=== PATIENT | female | born 1980 | race African-American/Black ===

== ENCOUNTER 2021-07-02 12:41 | Emergency (ER) | payer SELFPAY ==
--- NOTE | 2021-07-02 13:44 | EDPHYS ---
Physician Documentation [facility] Name: Marley Hutchinson Age: 41 yrs Sex: Female : 1980 Arrival Date: 07/02/2021 Time: 12:41 Bed 9 Private MD: ED Physician Keith Hernandez HPI: 07/02 13:43 This 41 yrs old Black Female presents to ER via Ambulatory with complaints of Hand pm1 Pain, Hand Swelling. 13:43 The patient or guardian reports pain, swelling. The complaints affect the left wrist pm1 and right wrist and left hand and right hand. 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 Onset: The symptoms/episode began/occurred this morning. Modifying factors: The symptoms are alleviated by holding still, the symptoms are aggravated by movement. Associated signs and symptoms: Pertinent negatives: cyanosis distally, decreased sensation distally, numbness distally, tingling distally. Severity of symptoms: in the emergency department the symptoms are actually worse. The patient has not experienced similar symptoms in the past. The patient has not recently seen a physician. Historical: - Allergies: 13:37 No Known Allergies; aa5 - PMHx: 13:34 Diabetes mellitus; aa5 13:37 thyroid problem; aa5 - Immunization history:: Adult Immunizations unknown. - Social history:: Smoking status: Reported history of juuling and/or vaping. ROS: 13:43 Constitutional: Negative for fever, chills, and weight loss, Cardiovascular: Negative pm1 for chest pain, palpitations, and edema, Respiratory: Negative for shortness of breath, cough, wheezing, and pleuritic chest pain. 13:43 Skin: Negative for injury, rash, and discoloration, Neuro: Negative for headache, weakness, numbness, tingling, and seizure. 13:43 MS/extremity: Positive for pain, of the right hand, left hand, right wrist and left wrist, Negative for injury or acute deformity, decreased range of motion, deformity. 13:43 All other systems are negative. Exam: 13:43 Constitutional: This is a well developed, well nourished patient who is awake, alert, pm1 and in no acute distress. Head/Face: Normocephalic, atraumatic. 13:43 Skin: Warm, dry with normal turgor. Normal color with no rashes, no lesions, and no evidence of cellulitis. 13:43 Cardiovascular: Exam negative for acute changes, Rate: normal, Rhythm: regular, Pulses: no pulse deficits are appreciated. 13:43 Respiratory: Exam negative for acute changes, respiratory distress, shortness of breath. 13:43 Musculoskeletal/extremity: Extremities: grossly normal except: noted in the left wrist: Positive for Phalen and Tinel test, noted in the right wrist: Positive for Phalen and Tinel test, Circulation is intact in all extremities. the right hand and left hand Sensation intact. 13:43 Neuro: Exam negative for acute changes, Orientation: is normal, Mentation: is normal, Motor: is normal, moves all fours. Vital Signs: 13:33 BP 109 / 80; Pulse 81; Resp 18 S; Temp 98.0(TE); Pulse Ox 99% on R/A; Weight 79.83 kg aa5 (R); Height 5 ft. 9 in. (175.26 cm) (R); 13:33 Body Mass Index 25.99 (79.83 kg, 175.26 cm) aa5 MDM: 13:11 Patient medically screened. pm1 13:39 Data reviewed: vital signs. Data interpreted: Pulse oximetry: on room air is 99 %. pm1 Interpretation: normal. Counseling: I had a detailed discussion with the patient and/or guardian regarding: the historical points, exam findings, and any diagnostic results supporting the discharge/admit diagnosis, the need for outpatient follow up, to return to the emergency department if symptoms worsen or persist or if there are any questions or concerns that arise at home. 07/02 13:42 Order name: Wrist Splint: bilateral; Complete Time: 13:56 pm1 Administered Medications: 14:03 Drug: Ketorolac 60 mg Route: IM; Site: right ventrogluteal; iw 14:15 Follow up: Response: No adverse reaction iw Disposition: 16:09 Co-signature as Attending Physician, Keith Hernandez MD I agree with the assessment and kdr plan of care. Disposition Summary: 07/02/21 13:43 Discharge Ordered Location: Home pm1 Problem: new pm1 Symptoms: have improved pm1 Condition: Stable pm1 Diagnosis - Pain in right wrist pm1 - Pain in left wrist pm1 Followup: pm1 - With: Emergency Department - When: As needed - Reason: Worsening of condition Followup: pm1 - With: Private Physician - When: 2 - 3 days - Reason: Recheck today's complaints, Continuance of care, Re-evaluation by your physician Discharge Instructions: - Discharge Summary Sheet pm1 - Carpal Tunnel Syndrome pm1 - Wrist Pain, Adult pm1 - Wrist Splint, Adult pm1 Forms: - Medication Reconciliation Form pm1 - Thank You Letter pm1 - Antibiotic Education pm1 - Prescription Opioid Use pm1 - Work release form iw Prescriptions: - Diclofenac Sodium 75 mg Oral tablet,delayed release (DR/EC) - take 1 tablet by ORAL route 2 times per day As needed; 30 tablet; Refills: 0, pm1 Product Selection Permitted Signatures: Keith Hernandez MD MD kdr Iris Damon RN RN iw Smita Monge RN RN aa5 Sreekanth Gallegos NP SAXOPHONE TEACHER pm1
--- NOTE | 2021-07-02 13:44 | ER ---
Nurse's Notes [facility] Name: Marley Hutchinson Age: 41 yrs Sex: Female : 1980 Arrival Date: 07/02/2021 Time: 12:41 Bed 9 Private MD: Diagnosis: Pain in right wrist;Pain in left wrist Presentation: 07/02 13:33 Chief complaint: Patient states: becca hand pain and swelling x 3 days ago. Coronavirus aa5 screen: At this time, the client does not indicate any symptoms associated with coronavirus-19. Ebola Screen: No symptoms or risks identified at this time. Initial Sepsis Screen: Does the patient meet any 2 criteria? No. Patient's initial sepsis screen is negative. Does the patient have a suspected source of infection? No. Patient's initial sepsis screen is negative. Risk Assessment: Do you want to hurt yourself or someone else? Patient reports no desire to harm self or others. Onset of symptoms was June 2021. 13:33 Acuity: CAS 5 aa5 13:33 Method Of Arrival: Ambulatory aa5 Triage Assessment: 14:00 General: Appears in no apparent distress. iw 14:00 General: Behavior is calm, cooperative. iw Historical: - Allergies: 13:37 No Known Allergies; aa5 - PMHx: 13:34 Diabetes mellitus; aa5 13:37 thyroid problem; aa5 - Immunization history:: Adult Immunizations unknown. - Social history:: Smoking status: Reported history of juuling and/or vaping. Screenin:05 Abuse screen: Denies threats or abuse. Denies injuries from another. Nutritional iw screening: No deficits noted. Tuberculosis screening: No symptoms or risk factors identified. Fall Risk None identified. Assessment: 14:00 General: Appears in no apparent distress. Behavior is calm, cooperative. Pain: iw Complains of pain in right hand and left hand. Neuro: Level of Consciousness is awake, alert, obeys commands, Oriented to person, place, time, situation, Moves all extremities. Full function. Cardiovascular: Patient's skin is warm and dry. Vital Signs: 13:33 BP 109 / 80; Pulse 81; Resp 18 S; Temp 98.0(TE); Pulse Ox 99% on R/A; Weight 79.83 kg aa5 (R); Height 5 ft. 9 in. (175.26 cm) (R); 13:33 Body Mass Index 25.99 (79.83 kg, 175.26 cm) aa5 ED Course: 12:41 Patient arrived in ED. as 12:48 Sreekanth Gallegos NP is PHCP. pm1 12:48 Keith Hernandez MD is Attending Physician. pm1 13:33 Arm band placed on. aa5 13:34 Triage completed. aa5 13:53 Iris Damon RN is Primary Nurse. iw 13:58 Velcro wrist splint applied to right wrist. left wrist. dh3 14:00 Patient has correct armband on for positive identification. iw 14:06 No provider procedures requiring assistance completed. Patient did not have IV access iw during this emergency room visit. Administered Medications: 14:03 Drug: Ketorolac 60 mg Route: IM; Site: right ventrogluteal; iw 14:15 Follow up: Response: No adverse reaction iw Outcome: 13:43 Discharge ordered by MD. pm1 14:06 Discharged to home ambulatory. iw 14:06 Condition: good 14:06 Discharge instructions given to patient, Instructed on discharge instructions, follow up and referral plans. Demonstrated understanding of instructions, follow-up care, medications, Prescriptions given X 1. 14:07 Patient left the ED. iw Signatures: Sonia Vega as Iris Damon RN RN iw Smita Monge RN RN aa5 Sreekanth Gallegos NP VEHICLE CALIBRATION ENGINEER pm1 Rhiannon Jean 3
[2021-07-02] MEDS ORDERED: KETOROLAC 30 MG/ML INJ ONE (14:02)
[2021-07-02 14:11] VITALS: BP 109/80; TEMP 98; O2SAT 99
== END 2021-07-02 14:07 | disposition home or self-care (01) ==
LOC: ER 12:41
DX: M25.531 Pain in right wrist (principal); M25.532 Pain in left wrist; E11.9 Type 2 diabetes mellitus without complications
CPT/HCPCS: 96372; 99283

== ENCOUNTER 2021-07-18 14:06 | Emergency (ER) | payer SELFPAY ==
--- NOTE | 2021-07-18 15:58 | EDPHYS ---
Physician Documentation [facility] Name: Marley Hutchinson Age: 41 yrs Sex: Female : 1980 Arrival Date: 07/18/2021 Time: 14:07 Bed DIS4 Private MD: JOHNATHAN Physician Baldomero Walters HPI: 07/18 15:54 This 41 yrs old Black Female presents to ER via Ambulatory with complaints of Numbness jmm Of Hand - left. 15:54 The patient or guardian reports pain. Onset: The symptoms/episode began/occurred jmm gradually, 2 week(s) ago. Modifying factors: The symptoms are alleviated by nothing, the symptoms are aggravated by movement. Associated signs and symptoms: Pertinent positives: numbness distally. The patient has not experienced similar symptoms in the past. Is a 41-year-old female with history of diabetes mellitus and hypothyroidism the presents emerged part with left hand numbness beginning approximately 2 weeks ago. Patient initially had some swelling to the hand. Now complaints of pain mainly to the palm affecting the first second and third phalanxes. Pain and paresthesias radiate up to the elbow.. Historical: - Allergies: 15:00 No Known Allergies; ww - PMHx: 15:00 diabetes mellitus; Thyroid problem; ww - PSHx: 15:00 Cholecystectomy; ww - Immunization history:: Adult Immunizations up to date. - Social history:: Smoking status: Reported history of juuling and/or vaping. ROS: 15:54 Constitutional: Negative for fever, chills, and weight loss, Cardiovascular: Negative jmm for chest pain, palpitations, and edema, Respiratory: Negative for shortness of breath, cough, wheezing, and pleuritic chest pain. 15:54 MS/extremity: Positive for pain, paresthesias. 15:54 All other systems are negative. Exam: 15:54 Constitutional: This is a well developed, well nourished patient who is awake, alert, jmm and in no acute distress. Head/Face: atraumatic. Eyes: EOMI, no conjunctival erythema appreciated ENT: Moist Mucus Membranes Neck: Trachea midline, Supple Chest/axilla: Normal chest wall appearance and motion. Cardiovascular: Regular rate and rhythm. No edema appreciated Respiratory: Normal respirations, no respiratory distress appreciated Abdomen/GI: Non distended, soft Back: Normal ROM Skin: General appearance color normal 15:54 Musculoskeletal/extremity: Paresthesias appreciated to the left palm involving the first second and third phalanxes, sensation is intact, motor function intact, locomotive mechanic is painful, full radial pulse, compartments are soft, neurovascular intact. 15:54 Skin: Appearance: Color: normal in color. 15:54 Neuro: Orientation: is normal, Mentation: is normal, Memory: is normal. 15:54 Psych: Behavior/mood is pleasant, cooperative. Vital Signs: 14:58 BP 112 / 90; Pulse 81; Resp 18; Temp 98; Pulse Ox 98% ; Weight 77.11 kg; Height 5 ft. ww 10 in. (177.80 cm); 14:58 Body Mass Index 24.39 (77.11 kg, 177.80 cm) ww MDM: 15:48 Patient medically screened. [facility] 15:57 Data reviewed: vital signs, nurses notes. Counseling: I had a detailed discussion with [facility] the patient and/or guardian regarding: the historical points, exam findings, and any diagnostic results supporting the discharge/admit diagnosis, the need for outpatient follow up, to return to the emergency department if symptoms worsen or persist or if there are any questions or concerns that arise at home. ED course: Symptoms appear consistent with carpal tunnel syndrome. Patient advised follow-up PCP and otherwise given strict return precautions. Patient understood agrees to plan of care.. Administered Medications: No medications were administered Disposition Summary: 07/18/21 15:57 Discharge Ordered Location: Home [facility] Condition: Stable [facility] Diagnosis - Carpal tunnel syndrome [facility] Followup: [facility] - With: Private Physician - When: 2 - 3 days - Reason: Recheck today's complaints, Continuance of care, Re-evaluation by your physician Followup: [facility] - With: Modesto Christie MD - When: 2 - 3 days - Reason: Recheck today's complaints, Continuance of care, Re-evaluation by your physician Discharge Instructions: - Discharge Summary Sheet [facility] - Carpal Tunnel Syndrome [facility] Forms: - Medication Reconciliation Form [facility] - Thank You Letter [facility] - Work release form [facility] - Antibiotic Education [facility] - Prescription Opioid Use [facility] Prescriptions: - orphenadrine citrate 100 mg Oral Tablet Sustained Release - take 1 tablet by ORAL route 2 times per day As needed; 20 tablet; Refills: 0, [facility] Product Selection Permitted Signatures: Baldomero Walters MD MD cha Mickail, Joel, PA PA jmm Wood, Whitney, RN RN ww
--- NOTE | 2021-07-18 15:58 | ER ---
Nurse's Notes [facility] Name: Marley Hutchinson Age: 41 yrs Sex: Female : 1980 Arrival Date: 07/18/2021 Time: 14:07 Bed DIS4 Private MD: Diagnosis: Carpal tunnel syndrome Presentation: 07/18 14:58 Chief complaint: Patient states: Left hand numbness and shooting pains up to left arm ww and shoulder. Wrist splint on hand and patient was told she would most likely need to have surgery for her carpal tunnel. Coronavirus screen: Client denies travel out of the [place] in the last 14 days. Ebola Screen: Patient denies travel to an Ebola-affected area in the 21 days before illness onset. Initial Sepsis Screen: Does the patient meet any 2 criteria? No. Patient's initial sepsis screen is negative. Does the patient have a suspected source of infection? No. Patient's initial sepsis screen is negative. Risk Assessment: Do you want to hurt yourself or someone else? Patient reports no desire to harm self or others. Onset of symptoms is unknown. 14:58 Method Of Arrival: Ambulatory ww 14:58 Acuity: CAS 4 ww Historical: - Allergies: 15:00 No Known Allergies; ww - PMHx: 15:00 diabetes mellitus; Thyroid problem; ww - PSHx: 15:00 Cholecystectomy; ww - Immunization history:: Adult Immunizations up to date. - Social history:: Smoking status: Reported history of juuling and/or vaping. Screenin:04 Abuse screen: Denies threats or abuse. Denies injuries from another. Nutritional iw screening: No deficits noted. Tuberculosis screening: No symptoms or risk factors identified. Fall Risk None identified. Assessment: 15:35 Reassessment: not in lobby at this time. iw Vital Signs: 14:58 BP 112 / 90; Pulse 81; Resp 18; Temp 98; Pulse Ox 98% ; Weight 77.11 kg; Height 5 ft. ww 10 in. (177.80 cm); 14:58 Body Mass Index 24.39 (77.11 kg, 177.80 cm) ww ED Course: 14:07 Patient arrived in ED. am2 15:00 Triage completed. ww 15:00 Arm band placed on. ww 15:35 Iris Damon, RN is Primary Nurse. iw 15:46 Dylan Anderson PA is PHCP. [facility] 15:46 Baldomero Walters MD is Attending Physician. [facility] 16:06 Modesto Christie MD is Referral Physician. [facility] Administered Medications: No medications were administered Outcome: 15:57 Discharge ordered by . [facility] 16:18 Patient left the ED. iw Signatures: Dylan Anderson PA PA [facility] Iris Damon, RN RN Aurelia Mathis Dori Caicedo RN RN
[2021-07-18 16:38] VITALS: BP 112/90; TEMP 98; O2SAT 98
== END 2021-07-18 16:18 | disposition home or self-care (01) ==
LOC: ER 14:06
DX: G56.02 Carpal tunnel syndrome, left upper limb (principal); E11.9 Type 2 diabetes mellitus without complications
CPT/HCPCS: 99281

== ENCOUNTER 2021-09-29 13:00 | Emergency (ER) | payer SELFPAY ==
[2021-09-29 15:58] LABS: Urine Blood Trace-intact (Negative); Urine Glucose 3+ (Negative); Urine Protein Negative (Negative); Urine pH 5.5 (5.0-7.0)
[2021-09-29] MEDS ORDERED: NA CHLORIDE 0.9% 1,000 ML ONE (16:28)
[2021-09-29] MEDS ORDERED: ONDANSETRON 4 MG/2 ML VIAL ONE (16:28)
[2021-09-29 16:57] LABS: Urine Bacteria >50 /HPF (<20)
[2021-09-29 17:17] LABS: Absolute Lymphocytes (CBC) 2.2 K/uL (0.7-4.9); Hematocrit 38.8 % (36.0-45.0); Lymphocytes % 21.9 % (15.3-44.8); MCV 77.9 fL (80-100); MPV 10.2 fL (7.6-11.3); RBC Red Blood Cell Count 4.98 M/uL (3.86-4.86)
[2021-09-29] MEDS ORDERED: CEFTRIAXONE 1000 MG/VIAL ONE (17:19)
[2021-09-29] MEDS ORDERED: INSULIN -REGULAR HUMAN 50 UNIT/0.5 ML ML ONE (17:19)
[2021-09-29] MEDS ORDERED: NA CHLORIDE 0.9% 250 ML ONE (17:19)
[2021-09-29 17:52] LABS: Albumin 3.3 g/dL (3.4-5.0); Bilirubin Total 0.5 mg/dL (0.2-1.0); Potassium 3.8 mmol/L (3.5-5.1); Protein, Total 7.5 g/dL (6.4-8.2)
--- NOTE | 2021-09-29 20:22 | RAD REPORT ---
EXAM DESCRIPTION: CTAbdomen Pelvis W Contrast - 09/29/2021 8:15 pm CLINICAL HISTORY: Abdominal pain. abd pain COMPARISON: No comparisons TECHNIQUE: Biphasic CT imaging of the abdomen and pelvis was performed with 100 ml non-ionic IV cont rast. All CT scans are performed using dose optimization technique as appropriate and may include automated exposure control or mA/KV adjustment according to patient size. FINDINGS: The lung bases are clear.Cholecystectomy clips. The liver, spleen, pancreas, adrenal glands and kidneys are within normal limits. No bowel obstruction, free air, free fluid or abscess. Moderate stool is present throughout the colon . The appendix is normal. No evidence of significant lymphadenopathy. No suspicious bony findings. IMPRESSION: No acute intra-abdominal or pelvic finding.
--- NOTE | 2021-09-29 20:31 | EDPHYS ---
Physician Documentation [facility] Name: Marley Hutchinson Age: 41 yrs Sex: Female : 1980 Arrival Date: 09/29/2021 Time: 13:06 Bed 11 Private MD: ED Physician Baldomero Walters HPI: 09/29 18:21 This 41 yrs old Black Female presents to ER via Ambulatory with complaints of Nausea, kb Headache, Abdominal Pain. 18:21 The patient presents to the emergency department with nausea, vomiting, abdominal pain. kb The patient has not recently seen a physician. 18:21 Onset: The symptoms/episode began/occurred 2 day(s) ago. Possible causes: unknown. The kb symptoms are aggravated by nothing. The symptoms are alleviated by nothing. Associated signs and symptoms: Pertinent positives: abdominal pain, nausea, vomiting. Severity of symptoms: At their worst the symptoms were moderate in the emergency department the symptoms are unchanged. The patient has not experienced similar symptoms in the past. Patient reports abdominal pain, headache, nausea, vomiting, and fatigue for 2 days. Denies fever, chills, body aches. Denies urinary symptoms.. Historical: - Allergies: 13:55 No Known Allergies; iw - PMHx: 13:55 Thyroid problem; diabetes mellitus; iw - PSHx: 13:55 Cholecystectomy; iw 13:55 bladder; iw - Immunization history:: Adult Immunizations up to date. - Social history:: Smoking status: . ROS: 18:21 Constitutional: Negative for fever, chills, and weight loss, Respiratory: Negative for kb shortness of breath, cough, wheezing, and pleuritic chest pain. 18:21 Abdomen/GI: Positive for abdominal pain, nausea and vomiting. 18:21 Neuro: Positive for headache. 18:21 All other systems are negative. Exam: 18:21 Constitutional: This is a well developed, well nourished patient who is awake, alert, kb and in no acute distress. Head/Face: Normocephalic, atraumatic. ENT: Moist Mucous membranes Cardiovascular: Regular rate and rhythm with a normal S1 and S2. No gallops, murmurs, or rubs. No pulse deficits. Respiratory: Respirations even and unlabored. No increased work of breathing. Talking in full sentences Abdomen/GI: Soft, non-tender. No distention Skin: Warm, dry with normal turgor. Normal color. MS/ Extremity: Pulses equal, no cyanosis. Neurovascular intact. Full, normal range of motion. Neuro: Awake and alert, GCS 15, oriented to person, place, time, and situation. Moves all extremities. Normal gait. Psych: Awake, alert, with orientation to person, place and time. Behavior, mood, and affect are within normal limits. Vital Signs: 13:54 BP 111 / 72; Pulse 89; Resp 16; Temp 98.4; Pulse Ox 100% on R/A; iw 17:07 BP 124 / 71; Pulse 63; Resp 16; Pulse Ox 100% on R/A; Pain 0/10; bm7 17:49 BP 114 / 74; Pulse 70; Resp 16; Pulse Ox 100% on R/A; Pain 0/10; bm7 18:40 BP 111 / 72; Pulse 73; Resp 16; Pulse Ox 100% on R/A; Pain 0/10; bm7 19:10 BP 111 / 64; Pulse 74; Resp 16; Pulse Ox 100% on R/A; Pain 4/10; bm7 MDM: 13:51 Patient medically screened. kb 18:25 Data reviewed: vital signs, nurses notes. Data interpreted: Pulse oximetry: on room air kb is 100 %. Interpretation: normal. 20:30 Counseling: I had a detailed discussion with the patient and/or guardian regarding: the kb historical points, exam findings, and any diagnostic results supporting the discharge/admit diagnosis, lab results, radiology results, the need for outpatient follow up, a family practitioner, to return to the emergency department if symptoms worsen or persist or if there are any questions or concerns that arise at home. 09/29 13:54 Order name: COVID-19 SARS RT PCR (Document "Date of Onset" if Symptomatic); Complete kb Time: 15:43 09/29 13:54 Order name: Flu; Complete Time: 14:55 kb 09/29 15:58 Order name: Urine Dipstick-Ancillary; Complete Time: 15:58 EDMS 09/29 15:58 Order name: Urine Microscopic Only; Complete Time: 17:05 kb 09/29 16:06 Order name: CBC with Diff; Complete Time: 17:37 kb 09/29 16:06 Order name: CMP; Complete Time: 17:55 kb 09/29 16:06 Order name: Lipase; Complete Time: 17:55 kb 09/29 16:07 Order name: Lactate kb 09/29 16:08 Order name: Acetone, Serum; Complete Time: 17:37 kb 09/29 17:00 Order name: Urine Culture EDMS 09/29 17:18 Order name: Glucose, Ancillary Testing; Complete Time: 17:21 EDMS 09/29 18:01 Order name: Glucose, Ancillary Testing; Complete Time: 18:01 EDMS 09/29 18:55 Order name: Glucose, Ancillary Testing; Complete Time: 19:01 EDMS 09/29 19:47 Order name: Urine --Ancillary (enter results); Complete Time: 20:13 mw2 09/29 13:54 Order name: Urine Dipstick-Ancillary (obtain specimen); Complete Time: 15:59 kb 09/29 13:54 Order name: Urine Test (obtain specimen); Complete Time: 15:59 kb 09/29 16:06 Order name: IV Saline Lock; Complete Time: 17:00 kb 09/29 16:06 Order name: Labs collected and sent; Complete Time: 17:00 kb 09/29 18:44 Order name: CT Abd/Pelvis - IV Contrast Only; Complete Time: 20:29 kb Administered Medications: 16:08 CANCELLED (Duplicate Order): Zofran (Ondansetron) 4 mg PO once kb 17:00 Drug: NS 0.9% 1000 ml Route: IV; Rate: 1 bolus; Site: right antecubital; 7 17:54 Follow up: IV Status: Completed infusion; IV Intake: 1000ml bm7 18:40 Follow up: IV Status: Completed infusion; IV Intake: 1000ml bm7 17:00 Drug: Zofran (Ondansetron) 4 mg Route: IVP; Site: right antecubital; 7 17:30 Follow up: Response: Nausea is decreased bm7 17:20 Drug: Insulin Regular Human 5 units {Co-Signature: ll1 (Denny Akers RN).} Route: IVP; bm7 Site: right antecubital; 17:53 Follow up: Response: Blood sugar is lowered 7 17:21 Drug: Rocephin (cefTRIAXone) 1 grams Route: IV; Rate: calculated rate; Site: right 7 antecubital; 17:36 Follow up: IV Status: Completed infusion iw Point of Care Testing: Blood Glucose: 17:07 Blood Glucose: 375 mg/dL; bm7 17:53 Blood Glucose: 322 mg/dL; bm7 18:40 Blood Glucose: 257 mg/dL; bm7 Ranges: Critical Glucose Levels:Adult <50 mg/dl or >400 mg/dl <40 mg/dl or >180 mg/dl Disposition Summary: 09/29/21 20:30 Discharge Ordered Location: Home kb Condition: Stable kb Diagnosis - UTI/ Urinary tract infection, site not specified kb - Hyperglycemia, unspecified kb Followup: kb - With: Emergency Department - When: As needed - Reason: Worsening of condition Followup: kb - With: Private Physician - When: 2 - 3 days - Reason: Recheck today's complaints, Continuance of care, Re-evaluation by your physician Discharge Instructions: - Discharge Summary Sheet kb - Urinary Tract Infection, Adult, Olxm-[id number] kb - Hyperglycemia, [id number] kb Forms: - Medication Reconciliation Form kb - Work release form kb - Thank You Letter kb - Antibiotic Education kb - Prescription Opioid Use kb Prescriptions: - Macrobid 100 mg Oral Capsule - take 1 capsule by ORAL route every 12 hours for 10 days; 20 capsule; Refills: kb 0, Product Selection Permitted Signatures: Dispatcher [employer] Delia Merrill, OPTICAL DESIGNER-C OPTICAL DESIGNER-Iris Reynolds, RN RN iw Ria Churchill, LILIA RN bm7 Denny Akers RN ll1 Corrections: (The following items were deleted from the chart) 16:08 13:54 Zofran (Ondansetron) 4 mg PO once ordered. kb kb
--- NOTE | 2021-09-29 20:31 | ER ---
Nurse's Notes [facility] Name: Marley Hutchinson Age: 41 yrs Sex: Female : 1980 Arrival Date: 09/29/2021 Time: 13:06 Bed 11 Private MD: Diagnosis: UTI/ Urinary tract infection, site not specified;Hyperglycemia, unspecified Presentation: 09/29 13:54 Chief complaint: Patient states: lower abd pain, headache, nausea, fatigue. Coronavirus iw screen: Client presents with at least one sign or symptom that may indicate coronavirus-19. Ebola Screen: Patient negative for fever greater than or equal to 101.5 degrees Fahrenheit, and additional compatible Ebola Virus Disease symptoms Patient denies exposure to infectious person. Patient denies travel to an Ebola-affected area in the 21 days before illness onset. No symptoms or risks identified at this time. Initial Sepsis Screen: Does the patient meet any 2 criteria? No. Patient's initial sepsis screen is negative. Does the patient have a suspected source of infection? No. Patient's initial sepsis screen is negative. Risk Assessment: Do you want to hurt yourself or someone else? Patient reports no desire to harm self or others. Onset of symptoms was September 27, 2021. 13:54 Method Of Arrival: Ambulatory iw 13:54 Acuity: CAS 4 iw 16:12 Acuity: CAS 3 iw Historical: - Allergies: 13:55 No Known Allergies; iw - PMHx: 13:55 Thyroid problem; diabetes mellitus; iw - PSHx: 13:55 Cholecystectomy; iw 13:55 bladder; iw - Immunization history:: Adult Immunizations up to date. - Social history:: Smoking status: . Screenin:42 Abuse screen: Denies threats or abuse. Nutritional screening: No deficits noted. bm7 Tuberculosis screening: No symptoms or risk factors identified. 17:49 Fall Risk None identified. bm7 Assessment: 16:42 Reassessment: Patient and/or family updated on plan of care and expected duration. Pain bm7 level reassessed. Patient is alert, oriented x 3, equal unlabored respirations, skin warm/dry/pink. 17:49 Reassessment: Patient and/or family updated on plan of care and expected duration. Pain bm7 level reassessed. Patient is alert, oriented x 3, equal unlabored respirations, skin warm/dry/pink. General: Appears in no apparent distress. comfortable, well groomed, unkempt, Behavior is calm, cooperative, appropriate for age. Pain: Complains of pain in abdomen. Neuro: No deficits noted. Level of Consciousness is awake, alert, obeys commands, Oriented to person, place, time, situation. Cardiovascular: No deficits noted. Denies chest pain, shortness of breath. Respiratory: No deficits noted. Denies shortness of breath at rest, on exertion. GI: Abdomen is round non-distended, Abd is soft and non tender X 4 quads. Reports nausea. : Reports burning with urination, pt states she thinks she has yeast infection. EENT: No deficits noted. No signs and/or symptoms were reported regarding the EENT system. Derm: No deficits noted. No signs and/or symptoms reported regarding the dermatologic system. Skin is intact, is healthy with good turgor, Skin is dry, Skin is pink, warm \T\ dry. Musculoskeletal: No deficits noted. No signs and/or symptoms reported regarding the musculoskeletal system. 18:41 Reassessment: Patient and/or family updated on plan of care and expected duration. Pain bm7 level reassessed. Patient is alert, oriented x 3, equal unlabored respirations, skin warm/dry/pink. Vital Signs: 13:54 BP 111 / 72; Pulse 89; Resp 16; Temp 98.4; Pulse Ox 100% on R/A; iw 17:07 BP 124 / 71; Pulse 63; Resp 16; Pulse Ox 100% on R/A; Pain 0/10; bm7 17:49 BP 114 / 74; Pulse 70; Resp 16; Pulse Ox 100% on R/A; Pain 0/10; bm7 18:40 BP 111 / 72; Pulse 73; Resp 16; Pulse Ox 100% on R/A; Pain 0/10; bm7 19:10 BP 111 / 64; Pulse 74; Resp 16; Pulse Ox 100% on R/A; Pain 4/10; bm7 ED Course: 13:06 Patient arrived in ED. rg4 13:09 Delia Stone F[facility]-C [facility]. kb 13:09 Baldomero Walters MD is Attending Physician. kb 13:55 Triage completed. iw 13:55 Arm band placed on. iw 16:42 Ria Churchill, RN is Primary Nurse. bm7 16:42 No apparent distress. Awaiting lab results. bm7 16:42 Patient has correct armband on for positive identification. Bed in low position. Call [facility] light in reach. Side rails up X 1. Pulse ox on. NIBP on. Warm blanket given. Assisted to bathroom. 16:42 Urine collected: clean catch specimen, clear. bm7 16:56 Inserted saline lock: 20 gauge in right antecubital area, using aseptic technique. iw Missed attempt(s): 22 gauge in left forearm. 17:49 Lights dimmed. bm7 17:49 No provider procedures requiring assistance completed. Missed attempt(s): 20 gauge in bm7 left antecubital area. Bleeding controlled, band aid applied, catheter tip intact. Patient maintains SpO2 saturation greater than 95% on room air. 19:04 Primary Nurse role handed off by Ria Churchill, LILIA 20:17 CT Abd/Pelvis - IV Contrast Only In Process Unspecified. EDMS 20:23 Lactate Sent. [facility] 20:36 Janine Syed is Primary Nurse. tw5 Administered Medications: 16:08 CANCELLED (Duplicate Order): Zofran (Ondansetron) 4 mg PO once kb 17:00 Drug: NS 0.9% 1000 ml Route: IV; Rate: 1 bolus; Site: right antecubital; bm7 17:54 Follow up: IV Status: Completed infusion; IV Intake: 1000ml 7 18:40 Follow up: IV Status: Completed infusion; IV Intake: 1000ml 7 17:00 Drug: Zofran (Ondansetron) 4 mg Route: IVP; Site: right antecubital; bm7 17:30 Follow up: Response: Nausea is decreased bm7 17:20 Drug: Insulin Regular Human 5 units {Co-Signature: ll1 (Denny Akers RN).} Route: IVP; 7 Site: right antecubital; 17:53 Follow up: Response: Blood sugar is lowered 7 17:21 Drug: Rocephin (cefTRIAXone) 1 grams Route: IV; Rate: calculated rate; Site: right 7 antecubital; 17:36 Follow up: IV Status: Completed infusion iw Medication: 16:42 VIS not applicable for this client. 7 Point of Care Testing: Blood Glucose: 17:07 Blood Glucose: 375 mg/dL; bm7 17:53 Blood Glucose: 322 mg/dL; bm7 18:40 Blood Glucose: 257 mg/dL; bm7 Ranges: Intake: 17:54 IV: 1000ml; Total: 1000ml. bm7 18:40 IV: 1000ml; Total: 2000ml. bm7 Outcome: 20:30 Discharge ordered by . ayde 20:36 Discharged to home ambulatory. tw5 20:36 Discharged to home ambulatory. 20:36 Condition: good 20:36 Discharge instructions given to patient, Instructed on discharge instructions, follow up and referral plans. Demonstrated understanding of instructions, follow-up care, medications, Prescriptions given X 1. 20:38 Patient left the ED. tw5 Signatures: Dispatcher [employer] EDMS Delia Stone, MUSHROOM CULTIVATOR-C MUSHROOM CULTIVATOR-Ckb Iris Damon, RN Cyndi Pierce 4 Jaclyn Vega [facility] Yady Topete Brittany, RN RN bm7 Janine Syed tw5 Denny Akers RN ll1
[2021-09-29 20:47] VITALS: TEMP 98.4; O2SAT 100
[2021-09-29 20:56] VITALS: BP 111/64
== END 2021-09-29 20:38 | disposition home or self-care (01) ==
LOC: ER 13:00
DX: N39.0 Urinary tract infection, site not specified (principal); E11.65 Type 2 diabetes mellitus with hyperglycemia; Z20.822 Contact with and (suspected) exposure to COVID-19
CPT/HCPCS: 36415; 74177; 80053; 81003; 81015; 81025; 82010; 82947; 83605; 83690; 85025; 87077; 87086; 87088; 87186; 87804; 96361; 96374; 96375; 99285; J1815; J2405; J7030; J7050; Q9967; U0003